=== PATIENT | male | born 1950 | race Caucasian/White ===

== ENCOUNTER 2019-03-25 10:18 | Outpatient (CLI) | payer BC ==
--- NOTE | 2019-03-25 10:47 | RAD ---
XR Wrist 3 Rt View STANDARD: 03/25/2019 12:00 AM CLINICAL INDICATION: Pain COMPARISON: None. FINDINGS: Fracture:No fracture. Arthropathy:Moderate arthropathy. Preferentially involving the radial aspect of the carpus. Incidental findings:None of significance. IMPRESSION: Asymmetric moderate arthropathy of the radial aspect of the carpus.
== END 2019-03-25 10:19 | disposition home or self-care (01) ==
LOC: BICRAD 10:18
PROVIDERS: ATTEND Physician Assistant
DX: M25.531 Pain in right wrist (principal); M19.031 Primary osteoarthritis, right wrist

== ENCOUNTER 2019-04-26 15:13 | Outpatient (CLI) | payer BC ==
--- NOTE | 2019-04-26 16:54 | MRI ---
MRI Upper Ext Jt Rt WO Con HISTORY: Right wrist pain numbness and tingling in fingers. COMPARISON: Plain film examination of 03/25/2019. FINDINGS: The carpal tunnel region appears unremarkable. The median nerve does not appear enlarged. Trace tenosynovitis change of the extensor carpi ulnaris is noted. Remainder the extensor tendons micheline ear unremarkable. Motion artifact degrades detail but the central portion of the triangular fibrocartilage, which appea rs torn with an overall thin triangular fibrocartilage present. The scapholunate and lunotriquetral ligaments are intact. There are prominent arthritic changes of the triscaphe joint. Mild changes of the first carpometacarp al joint space are seen. There are also subchondral bony changes involving the radial side of the capitate. IMPRESSION: Marked arthritic changes of the triscaphe joint. 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 Other findings as noted above.
== END 2019-04-26 15:14 | disposition home or self-care (01) ==
LOC: SCSMRI 15:13
PROVIDERS: ATTEND Orthopaedic Surgery Hand Surgery
DX: S63.501A Unspecified sprain of right wrist, initial encounter (principal); M19.031 Primary osteoarthritis, right wrist; M65.841 Other synovitis and tenosynovitis, right hand

== ENCOUNTER 2019-07-24 07:37 | Outpatient (CLI) | payer BC ==
--- NOTE | 2019-07-24 15:03 | RAD ---
EXAM: Two views chest PROVIDED CLINICAL HISTORY: Preoperative evaluation COMPARISON: 04/27/2016 FINDINGS: Cardiac silhouette and pulmonary vasculature are within normal limits. The lungs are clear. Mild deg enerative changes are again seen in the spine. Surgical clips overlie the epigastric region. IMPRESSION: No acute cardiopulmonary process.
== END 2019-07-24 07:38 | disposition home or self-care (01) ==
LOC: LABBT 07:37
PROVIDERS: ATTEND Orthopaedic Surgery Hand Surgery
DX: Z01.818 Encounter for other preprocedural examination (principal); G56.01 Carpal tunnel syndrome, right upper limb
CPT/HCPCS: 71046

== ENCOUNTER 2019-07-26 08:27 | Day surgery (SDC) | payer BC ==
[2019-07-24 14:18] VITALS: BMI 31.9
[2019-07-26] MEDS ORDERED: Bacitracin Zinc Ointment 30 gm TUBE ONE (10:33)
[2019-07-26] MEDS ORDERED: Betamet Acet/Betamet Na Ph 30 MG/5 ML VIAL ONE (10:33)
[2019-07-26] MEDS ORDERED: Sodium Chloride 0.9% 10 ML ONE (10:33)
[2019-07-26] MEDS ORDERED: Bupivacaine PF 0.5% 30 ML VIAL ONE (10:33)
[2019-07-26] MEDS ORDERED: Fentanyl 100 MCG/2 ML VIAL ONE (10:38)
--- NOTE | 2019-07-26 12:06 | RAD ---
EXAM: 2 views of the left wrist HISTORY: First CMC joint injection FINDINGS/IMPRESSION: A needle is seen extending from the volar aspect of the thumb into the first CMC joint of the thumb. No significant osteophyte formation is seen.
[2019-07-26] MEDS ORDERED: Ketorolac Tromethamine 30 MG/ML VIAL ONE (12:35)
[2019-07-26] MEDS ORDERED: HYDROcodone/Acetaminophen 5/325 mg Tablet ONE ×2 (12:36)
[2019-07-26] MEDS ORDERED: Dexamethasone 20 MG/5 ML VIAL ONE (13:39)
[2019-07-26] MEDS ORDERED: PROPOFOL 200 MG/20 ML VIAL ONE (13:39)
[2019-07-26] MEDS ORDERED: Ondansetron PF 4 MG/2 ML Vial ONE (13:39)
--- NOTE | 2019-07-26 13:39 | OP ---
DATE OF PROCEDURE: 07/26/2019 PREOPERATIVE DIAGNOSES: 1. Left carpometacarpal joint osteoarthritis. 2. Right carpal tunnel syndrome. POSTOPERATIVE DIAGNOSES: 1. Left carpometacarpal joint osteoarthritis. 2. Right carpal tunnel syndrome with very tight median nerve and early stippling of 1 cm area and hourglass formation. PROCEDURE PERFORMED: 1. Left carpometacarpal joint injection with C-arm supervision, 2 mL of Celestone. 2. Right carpal tunnel release. TOURNIQUET TIME: 17 minutes. ESTIMATED BLOOD LOSS: 5 mL. INDICATION: The patient with history, physical exam, and electrodiagnostic tests consistent with severe carpal tunnel syndrome, right, and failed conservative treatment on the left, osteoarthritis, advanced stage II, almost stage III, which has failed non-injection therapy. DESCRIPTION OF PROCEDURE: After successful general endotracheal anesthesia, the limb was prepped and draped in both sides simultaneously. On the left side, we approached it first with a drape C-arm, identified the joint, placed needle in the center of the joint in frontal sagittal plane, injected 2 mL of Celestone only, removed this. Covered with a small dressing. I turned to the right side, where we then had performed appropriate time-out, exsanguinated the limb, inflated the tourniquet to 250 mmHg pressure, and made an outline 2.5 cm incision in line with the ring finger from medial and lateral position and Banks's cardinal line distally. I went no further proximally and 5 mm distal to the volar wrist flexion crease. I carried this incision through skin and subcutaneous tissue down to the transcarpal ligament. We visualized it, released it first as midportion distally protecting all the neural elements, and then, from the midportion proximally with combination of [place] blade under direct visualization with a tenotomy scissors. It was completely free. The tendons were intact with no evidence of tenosynovitis. The median nerve showed stippling and early hourglass formation over 1 cm area. We placed 3 mL of Celestone over the area near the nerve, obtained hemostasis after releasing the tourniquet, and closed the wound with interrupted 4-0 nylon in a mattress pattern. The patient then left the operating room without evidence of anesthetic or operative complication, and had received a total of 10 mL of 0.5% Marcaine incisional block. Job ID: [id number]
== END 2019-07-26 13:37 | disposition home or self-care (01) ==
LOC: SDC 08:27
PROVIDERS: ATTEND Orthopaedic Surgery Hand Surgery
PROC: 3E0U33Z Introduction of Anti-inflammatory into Joints, Percutaneous Approach (ICD-10-PCS; principal; 2019-07-26)
PROC: 01N50ZZ Release Median Nerve, Open Approach (ICD-10-PCS; principal; 2019-07-26)
DX: G56.01 Carpal tunnel syndrome, right upper limb (principal); M18.12 Unilateral primary osteoarthritis of first carpometacarpal joint, left hand; I10 Essential (primary) hypertension; F32.9 Major depressive disorder, single episode, unspecified; E78.5 Hyperlipidemia, unspecified; K21.9 Gastro-esophageal reflux disease without esophagitis; G47.30 Sleep apnea, unspecified; H91.93 Unspecified hearing loss, bilateral; Z79.899 Other long term (current) drug therapy; Z98.84 Bariatric surgery status
CPT/HCPCS: 76000; 93005; 93010; J0690; J0702; J1885; J3010; J3490; S0020

== ENCOUNTER 2019-11-14 15:14 | Outpatient (CLI) | payer BC ==
[~2019-11-14 15:14] MED LIST: Magnevist 469MG/ML 20 ML VIAL ONE
--- NOTE | 2019-11-15 09:08 | MRI ---
MRI PELVIS WITH AND WITHOUT CONTRAST: History: Acute pelvic pain. Comparison: CT abdomen and pelvis 2016. Findings: Bones: On the T1 weighted sequence there are no abnormal foci of marrow signal replacement. Mild dege nerative changes of both SI joints. No acute fracture. No stress edema. Mild degenerative disease of the pubic symphysis. There are partial tears of the rectus abdominis-adductor aponeurosis of the pubic symphysis bilateral ly with fluid undercutting the aponeurosis. No significant muscular edema. Muscles: Muscle signal and bulk is normal. No abnormal enhancement. No significant muscle atrophy. Tendons: The iliopsoas tendons are intact. The hamstring tendons are intact. Gluteus tendons are inta ct. Intrapelvic soft tissues: Moderate diverticular disease sigmoid colon without active current inflamma tion. All circumferential wall thickening of the urinary bladder. No pelvic adenopathy. No mass effect upon the sciatic nerves or the pudendal nerves. Small fat-containing left indirect inguinal hernia. Impression: 1. Partial tear and detachment of the bilateral rectus abdominis-adductor aponeurosis from the pubic symphysis with fluid undercutting the aponeurotic plate suggesting athletic pubalgia bilaterally. 2. No adenopathy in the pelvis or concerning mass. 3. No acute osseous abnormality. 4. No significant gluteus medius tendinosis or partial tearing. 5. Small fat-containing left indirect inguinal hernia. Transcribed Date/Time: 11/15/2019 9:17 AM
== END 2019-11-14 15:15 | disposition home or self-care (01) ==
LOC: BICMRI 15:14
PROVIDERS: ATTEND Anesthesiology Pain Medicine
DX: R10.2 Pelvic and perineal pain (principal); K40.90 Unilateral inguinal hernia, without obstruction or gangrene, not specified as recurrent; S39.011A Strain of muscle, fascia and tendon of abdomen, initial encounter
CPT/HCPCS: 72197; 82565; A9579

== ENCOUNTER 2021-08-10 08:41 | Outpatient (CLI) | payer MEDICARE, BC | END 2021-08-10 08:42 | disposition home or self-care (01) | LOC: BICMRI 08:41 | PROVIDERS: ATTEND Psychiatry & Neurology Neurology | DX: M54.50 Low back pain, unspecified (principal); M47.816 Spondylosis without myelopathy or radiculopathy, lumbar region; M48.061 Spinal stenosis, lumbar region without neurogenic claudication; M48.07 Spinal stenosis, lumbosacral region; E88.2 Lipomatosis, not elsewhere classified | CPT/HCPCS: 72148 ==

== ENCOUNTER 2021-11-08 14:56 | Outpatient (CLI) | payer MEDICARE, BC ==
[2021-11-08 17:20] LABS: Hemoglobin 14.5 g/dL (13.5-17.5); Mean Corpuscular HGB CONC 32.2 g/dL (32.0-36.0); Mean Corpuscular Hemoglobin 31.8 pg (27.0-33.0); Mean Corpuscular Volume 98.7 fl (81.2-95.1); Mean Platelet Volume 11.8 fl (7.4-10.4); Platelet Count 180 10x3/uL (150-450); RBC Distribution Width 12.5 % (11.5-14.5); Red Blood Cell (RBC) Count 4.56 10x6/uL (4.32-5.72); White Blood Cell (WBC) Count 8.4 10x3/uL (3.5-10.5)
[2021-11-08 17:39] LABS: PTT 25.9 sec (22.0-33.0); Prothrombin Time 10.7 sec (9.5-12.1)
[2021-11-08 17:41] LABS: Anion Gap 16 mmol/L (10-20); BUN (Urea Nitrogen) 23 mg/dL (8.4-25.7); Calc. Creatinine Clearance 0 mL/min (70-130); Calcium 9.1 mg/dL (7.8-10.44); Carbon Dioxide 26 mmol/L (23-31); Chloride 105 mmol/L (98-107); Glucose 94 mg/dL (83-110); Potassium 4.3 mmol/L (3.5-5.1); Sodium 143 mmol/L (136-145)
[2021-11-09 11:36] LABS: SARS-CoV-2 PCR by NAA Not Detected (NotDetected)
== END 2021-11-08 14:57 | disposition home or self-care (01) ==
LOC: LABBT 14:56
PROVIDERS: ATTEND Surgery
DX: Z01.818 Encounter for other preprocedural examination (principal); M48.062 Spinal stenosis, lumbar region with neurogenic claudication; Z20.822 Contact with and (suspected) exposure to COVID-19
CPT/HCPCS: 80048; 85027; 85610; 85730; 93005; U0003; U0005; 93010

== ENCOUNTER 2021-12-20 14:49 | Outpatient (CLI) | payer MEDICARE, BC ==
[2021-12-20 15:47] LABS: Hemoglobin 14.7 g/dL (13.5-17.5); Mean Corpuscular HGB CONC 33.1 g/dL (32.0-36.0); Mean Corpuscular Hemoglobin 32.7 pg (27.0-33.0); Mean Corpuscular Volume 98.9 fl (81.2-95.1); Mean Platelet Volume 11.2 fl (7.4-10.4); Platelet Count 202 10x3/uL (150-450); RBC Distribution Width 12.3 % (11.5-14.5); Red Blood Cell (RBC) Count 4.49 10x6/uL (4.32-5.72); White Blood Cell (WBC) Count 6.8 10x3/uL (3.5-10.5)
[2021-12-20 16:23] LABS: INR-International Normal Ratio 0.9; PTT 25.1 sec (22.0-33.0); Prothrombin Time 10.4 sec (9.5-12.1)
[2021-12-20 16:57] LABS: Anion Gap 17 mmol/L (10-20); BUN (Urea Nitrogen) 23 mg/dL (8.4-25.7); Calc. Creatinine Clearance 0 mL/min (70-130); Calcium 9.1 mg/dL (7.8-10.44); Carbon Dioxide 24 mmol/L (23-31); Chloride 106 mmol/L (98-107); Glucose 111 mg/dL (83-110); Potassium 4.4 mmol/L (3.5-5.1); Sodium 143 mmol/L (136-145)
[2021-12-21 07:56] LABS: SARS-CoV-2 PCR by NAA Not Detected (NotDetected)
== END 2021-12-20 14:50 | disposition home or self-care (01) ==
LOC: LABBT 14:49
PROVIDERS: ATTEND Surgery
DX: Z01.812 Encounter for preprocedural laboratory examination (principal); C67.9 Malignant neoplasm of bladder, unspecified; Z20.822 Contact with and (suspected) exposure to COVID-19
CPT/HCPCS: 80048; 85027; 85610; 85730; U0003; U0005

== ENCOUNTER 2021-12-23 09:17 | Inpatient (IN) | payer MEDICARE, BC ==
[2021-12-23] MEDS ORDERED: Fentanyl 250 MCG/5 ML VIAL ONE ×2 (10:31→15:05)
[2021-12-23] MEDS ORDERED: Lidocaine 2% Jelly 5 ML TUBE ONE (10:32)
[2021-12-23] MEDS ORDERED: Thrombin 5000 UNITS/5 ML VIAL ONE (10:55)
[2021-12-23] MEDS ORDERED: ceFAZolin Sodium (SDC) 2 GM/100 ML BAG ONE (11:19)
[2021-12-23] MEDS ORDERED: Lidocaine 1% PF 5 ML VIAL ONE (11:30)
[2021-12-23] MEDS ORDERED: Rocuronium Bromide 10 MG/ML (10ML VIAL) ONE (11:30)
[2021-12-23] MEDS ORDERED: PROPOFOL 200 MG/20 ML VIAL ONE (11:30)
[2021-12-23] MEDS ORDERED: Glycopyrrolate 0.2 MG/ML 5 ML SYRINGE ONE (11:30)
[2021-12-23] MEDS ORDERED: ePHEDrine 50 MG/ML VIAL ONE (11:30)
[2021-12-23] MEDS ORDERED: PHENYLEPHRINE-NS 100 MCG/ML 10 ML SYRINGE ONE (11:30)
[2021-12-23] MEDS ORDERED: Ondansetron PF 4 MG/2 ML Vial ONE (11:30)
[2021-12-23] MEDS ORDERED: Phenylephrine 10 MG/ML VIAL ONE (11:57)
[2021-12-23] MEDS ORDERED: Acetaminophen/Codeine 30-300mg Tablet PO PRN (14:35)
[2021-12-23] MEDS ORDERED: traMADol HCl 50 MG TAB PO PRN (14:35)
[2021-12-23] MEDS ORDERED: Acetaminophen 325 MG TAB PO PRN (14:35)
[2021-12-23] MEDS ORDERED: hydrALAZINE 20 MG/ML VIAL SLOW IVP PRN (14:38)
[2021-12-23] MEDS ORDERED: Promethazine HCl 25 MG/ML VIAL IVPB PRN (14:45)
[2021-12-23] MEDS ORDERED: Promethazine HCl 25 MG/ML VIAL IM PRN (14:45)
[2021-12-23] MEDS ORDERED: Ondansetron HCl/PF 4 MG/2 ML Vial IVP PRN (14:45)
[2021-12-23] MEDS ORDERED: Morphine 4 MG/ML VIAL SLOW IVP PRN (15:07)
[2021-12-23] MEDS: Sodium Chloride 0.9% 1,000 ML IV SCH (16:35)
[2021-12-23] MEDS: HYDROcodone/Acetaminophen 7.5/325 mg Tablet PO PRN ×2 (16:37→22:58)
[2021-12-23] MEDS: tiZANidine HCl 4 MG TAB PO PRN (16:38)
[2021-12-23] MEDS ORDERED: CEFAZOLIN 2 GM in Sodium Chloride 0.9% 100 ML IVPB SCH (19:00)
[2021-12-23] MEDS: CEFAZOLIN 2 GM, Admixture Fee 1 EACH in Sodium Chloride 0.9% 100 ML IVPB SCH (20:50)
[2021-12-23] MEDS: Gabapentin 300 MG CAP PO SCH (20:58)
[2021-12-23] MEDS: Amlodipine 5 MG TAB PO SCH (20:59)
[2021-12-23] MEDS: Zolpidem Tartrate 5 MG TAB PO SCH (20:59)
[2021-12-24] MEDS: HYDROcodone/Acetaminophen 7.5/325 mg Tablet PO PRN ×3 (05:05→18:03)
[2021-12-24] MEDS: tiZANidine HCl 4 MG TAB PO PRN ×2 (05:05→18:04)
[2021-12-24] MEDS: CEFAZOLIN 2 GM, Admixture Fee 1 EACH in Sodium Chloride 0.9% 100 ML IVPB SCH (05:05)
[2021-12-24] MEDS: Sodium Chloride 0.9% 1,000 ML IV SCH ×2 (05:51→19:36)
[2021-12-24] MEDS: Losartan/Hydrochlorothiazide 100 mg/25 mg Tablet PO SCH (10:12)
[2021-12-24] MEDS: Vit A,C & E/Lutein/Minerals Tablet PO SCH (10:12)
[2021-12-24] MEDS: Loratadine 10 MG TAB PO SCH (10:13)
[2021-12-24] MEDS: DULoxetine 60 MG CAP PO SCH (10:13)
[2021-12-24 15:26] VITALS: BMI 31.8
[2021-12-24] MEDS ORDERED: Rosuvastatin 20 MG TAB PO SCH (21:00)
[2021-12-24] MEDS: Amlodipine 5 MG TAB PO SCH (21:08)
[2021-12-24] MEDS: Zolpidem Tartrate 5 MG TAB PO SCH (21:09)
[2021-12-24] MEDS: Gabapentin 300 MG CAP PO SCH (21:09)
[2021-12-25] MEDS ORDERED: Ondansetron PF 4 MG/2 ML Vial IVP PRN (08:27)
[2021-12-25] MEDS: Losartan/Hydrochlorothiazide 100 mg/25 mg Tablet PO SCH (08:53)
[2021-12-25] MEDS: DULoxetine 60 MG CAP PO SCH (09:09)
[2021-12-25] MEDS: Vit A,C & E/Lutein/Minerals Tablet PO SCH (09:09)
[2021-12-25] MEDS: Loratadine 10 MG TAB PO SCH (09:09)
[2021-12-25 12:46] VITALS: BP 123/70; TEMP 98.1
[2021-12-25] MEDS: HYDROcodone/Acetaminophen 7.5/325 mg Tablet PO PRN (12:58)
[2021-12-25] MEDS: Sodium Chloride 0.9% 1,000 ML IV SCH (15:24)
== END 2021-12-25 16:12 | DRG 517 ==
LOC: SDC 09:17 → SJJU 16:00 → OBSVTOIN 12-25 12:24
PROVIDERS: ADMIT Surgery; ATTEND Surgery
PROC: 01NB0ZZ Release Lumbar Nerve, Open Approach (ICD-10-PCS; principal; 2021-12-23)
PROC: 01NR0ZZ Release Sacral Nerve, Open Approach (ICD-10-PCS; 2021-12-23)
DX: M48.062 Spinal stenosis, lumbar region with neurogenic claudication (principal); Z20.822 Contact with and (suspected) exposure to COVID-19; F20.9 Schizophrenia, unspecified; Z60.2 Problems related to living alone; E88.2 Lipomatosis, not elsewhere classified; R33.9 Retention of urine, unspecified; Z79.899 Other long term (current) drug therapy
CPT/HCPCS: 51701; 51798; 76000; 96365; 96375; G0378; J0690; J2270; J2370; J2405; J2704; J3010; J3370; J3490

== ENCOUNTER 2022-07-18 08:59 | Outpatient (CLI) | payer MEDICARE, BC | END 2022-07-18 09:00 | disposition home or self-care (01) | LOC: BICULT 08:59 | PROVIDERS: ATTEND Internal Medicine Nephrology | DX: N18.30 Chronic kidney disease, stage 3 unspecified (principal) | CPT/HCPCS: 76770; 93975 ==

== ENCOUNTER 2024-08-16 14:05 | Observation (INO) | payer MEDICARE ==
[~2024-08-16 14:05] MED LIST changes: +Iopamidol-370 76% 500 ML MDV (1 ML CHARGE) ONE; -Magnevist 469MG/ML 20 ML VIAL ONE
[2024-08-16 14:52] LABS: #Basophils 0.05 10x3/uL (0.0-0.2); %Basophils 0.7 % (0.0-1.0); %Eosinophils 1.5 % (0.0-10.0); %Lymphocytes 18.1 % (21.0-51.0); %Monocytes 12.5 % (0.0-10.0); %Neutrophils 66.8 % (42.0-75.0); Hematocrit 46.6 % (42.0-52.0); Hemoglobin 15.1 g/dL (14.0-18.0); Mean Corpuscular HGB CONC 32.4 g/dL (32.0-36.0); Mean Corpuscular Hemoglobin 32.1 pg (27.0-31.0); Mean Corpuscular Volume 99.1 fL (78.0-98.0); Mean Platelet Volume 10.7 fL (7.4-10.4); Platelet Count 208 10x3/uL (130-400); RBC Distribution Width 12.5 % (11.5-14.5)
[2024-08-16 15:14] LABS: ALT (SGPT) 26 U/L (8-55); AST (SGOT) 20 U/L (5-34); Albumin 3.8 g/dL (3.4-4.8); Alkaline Phosphatase 66 U/L (40-110); Anion Gap 14 mmol/L (10-20); BUN (Urea Nitrogen) 19 mg/dL (8.4-25.7); Bilirubin, Total 0.4 mg/dL (0.2-1.2); Calc. Creatinine Clearance 0 mL/min (70-130); Calcium 9.4 mg/dL (7.8-10.44); Carbon Dioxide 28 mmol/L (23-31); Chloride 105 mmol/L (98-107); Estimated GFR 55; Globulin 2.3 g/dL (2.4-3.5); Glucose 108 mg/dL (83-110); Potassium 4.5 mmol/L (3.5-5.1); Protein, Total 6.1 g/dL (5.8-8.1); Sodium 142 mmol/L (136-145)
[2024-08-16 15:17] LABS: INR-International Normal Ratio 1.1; PTT 29.6 sec (22.9-36.1); Prothrombin Time 13.9 sec (12.0-14.7)
[2024-08-16 15:19] LABS: Troponin I 0.025 ng/mL (< 0.028)
[2024-08-16] MEDS ORDERED: Aspirin Chewable 81 MG TAB ONE (17:16)
[2024-08-16] MEDS ORDERED: traMADol HCl 50 MG TAB PO PRN (17:23)
[2024-08-16] MEDS ORDERED: Acetaminophen 325 MG TAB PO PRN (17:23)
[2024-08-16] MEDS ORDERED: hydrALAZINE 20 MG/ML VIAL SLOW IVP PRN (17:27)
[2024-08-16 19:41] VITALS: BMI 35.6
[2024-08-16] MEDS: Gabapentin 300 MG CAP PO SCH (20:15)
[2024-08-16] MEDS: Fish Oil 1,000 MG CAP PO SCH (20:15)
[2024-08-16] MEDS: Zolpidem Tartrate 5 MG TAB PO SCH (20:15)
[2024-08-17 03:44] LABS: #Basophils 0.04 10x3/uL (0.0-0.2); %Basophils 0.6 % (0.0-1.0); %Eosinophils 2.3 % (0.0-10.0); %Lymphocytes 25.1 % (21.0-51.0); %Monocytes 13.5 % (0.0-10.0); %Neutrophils 58.4 % (42.0-75.0); Hematocrit 43.1 % (42.0-52.0); Hemoglobin 14.2 g/dL (14.0-18.0); Mean Corpuscular HGB CONC 32.9 g/dL (32.0-36.0); Mean Corpuscular Hemoglobin 31.5 pg (27.0-31.0); Mean Corpuscular Volume 95.6 fL (78.0-98.0); Mean Platelet Volume 11.1 fL (7.4-10.4); Platelet Count 178 10x3/uL (130-400); RBC Distribution Width 12.4 % (11.5-14.5); Red Blood Cell (RBC) Count 4.51 mill/uL (4.70-6.10)
[2024-08-17 04:01] LABS: Anion Gap 13 mmol/L (10-20); BUN (Urea Nitrogen) 18 mg/dL (8.4-25.7); Calc. Creatinine Clearance 77 mL/min (70-130); Calcium 9.2 mg/dL (7.8-10.44); Carbon Dioxide 27 mmol/L (23-31); Chloride 106 mmol/L (98-107); Estimated GFR 59; Glucose 99 mg/dL (83-110); Potassium 4.3 mmol/L (3.5-5.1); Sodium 142 mmol/L (136-145)
[2024-08-17] MEDS ORDERED: hydrALAZINE 25 MG TAB PO SCH ×2 (09:00)
[2024-08-17] MEDS: Aspirin 81 mg Enteric Coated Tablet PO SCH (09:48)
[2024-08-17] MEDS: Rosuvastatin 20 MG TAB PO SCH (09:52)
[2024-08-17] MEDS: Pantoprazole DR 40 MG TAB PO SCH (09:53)
[2024-08-17] MEDS: DULoxetine 60 MG CAP PO SCH (09:53)
[2024-08-17] MEDS: hydrALAZINE 25 MG TAB PO SCH (09:54)
[2024-08-17] MEDS: Clopidogrel Bisulfate 300 MG TAB PO SCH (15:10)
[2024-08-18 12:29] VITALS: BP 177/92; TEMP 97.6
[2024-08-20] MEDS ORDERED: hydrALAZINE 25 MG TAB PO SCH (09:00)
== END 2024-08-18 15:05 | disposition home or self-care (01) ==
LOC: SUATTDRO 14:05 → ERS 14:05 → 2SE 17:24
PROVIDERS: ADMIT Internal Medicine; ATTEND Internal Medicine
DX: H53.131 Sudden visual loss, right eye (principal); E66.9 Obesity, unspecified; E78.5 Hyperlipidemia, unspecified; E78.1 Pure hyperglyceridemia; I10 Essential (primary) hypertension; K21.9 Gastro-esophageal reflux disease without esophagitis; G47.00 Insomnia, unspecified; C67.9 Malignant neoplasm of bladder, unspecified; Z90.49 Acquired absence of other specified parts of digestive tract; Z98.890 Other specified postprocedural states; Z79.82 Long term (current) use of aspirin; Z79.899 Other long term (current) drug therapy
CPT/HCPCS: 70450; 70496; 70498; 70544; 70551; 71045; 80048; 80053; 84484; 85025 ×2; 85610; 85730; 93005; 93306; 94760; 99285; G0378 ×4; Q9967; 36415